=== PATIENT | male | born 1955 | race Caucasian/White ===

== ENCOUNTER → 2020-06-02 | Outpatient (CLI) | payer MEDICARE, OTHER | LOC: HEART 192 08:30 → ECHO 08:38 → HEART 192 09:00 → ECHO 09:00 | DX: R60.1 Generalized edema (principal); I51.7 Cardiomegaly; R93.1 Abnormal findings on diagnostic imaging of heart and coronary circulation | CPT/HCPCS: ECHO; 93306 ==

== ENCOUNTER 2021-12-08 09:39 | Emergency (ER) | payer MEDICARE ==
[2021-12-08 10:43] LABS: HEMOGLOBIN 13.3 gm/dl (14.0-17.5); RED BLOOD COUNT 4.41 M/UL (4.20-5.50)
[2021-12-08 11:05] LABS: BUN/CREATININE RATIO 18 (0-10)
== END 2021-12-08 13:05 | disposition home or self-care (01) ==
LOC: ER1 09:39
PROVIDERS: Emergency Medicine
DX: R07.9 Chest pain, unspecified (principal); E11.9 Type 2 diabetes mellitus without complications; I10 Essential (primary) hypertension
CPT/HCPCS: 71045; 80053; 82550; 82553; 84484; 85025; 93005; 99285

== ENCOUNTER → 2021-12-08 | Outpatient (CLI) | payer MEDICARE | LOC: US 14:45 | DX: M79.661 Pain in right lower leg (principal); M79.662 Pain in left lower leg; E11.40 Type 2 diabetes mellitus with diabetic neuropathy, unspecified | CPT/HCPCS: 93922 ==